=== PATIENT | female | born 1945 | race Two or more races ===

== ENCOUNTER 2019-12-05 06:46 | Day surgery (SDC) | payer OTHER | END 2019-12-05 10:30 | disposition home or self-care (01) | LOC: AMB-ENDOS 06:46 → CIR.AMB 12:00 | PROVIDERS: ATTEND Surgery | DX: D12.2 Benign neoplasm of ascending colon (principal); K64.8 Other hemorrhoids; Z20.828 Contact with and (suspected) exposure to other viral communicable diseases ==

== ENCOUNTER 2019-12-22 14:08 | Inpatient (IN) | payer OTHER ==
[~2019-12-22] VITALS: Ht 154.9 cm; Wt 137.0 kg
[2020-01-11] MEDS ORDERED: ATORVASTATIN CA40 MG PO (13:08)
[2020-01-11] MEDS ORDERED: LOSARTAN-HCTZ1 EAC1 PO (13:08)
[2020-01-11] MEDS ORDERED: TOPROL XL25 M1 PO (13:08)
[2020-01-11] MEDS ORDERED: SINGULAIR10 MG PO (13:09)
[2020-01-11] MEDS ORDERED: ALEND PO (13:09)
[2020-01-11] MEDS ORDERED: [UNRECOGNIZED DRUG - OTHER] PO (13:10)
[2020-01-11] MEDS ORDERED: ALBUTE IN (13:10)
[2020-01-11] MEDS ORDERED: FOLIC PO (13:12)
[2020-01-11] MEDS ORDERED: GLUCOSAM PO (13:12)
[2020-01-11] MEDS ORDERED: FISH OIL PO (13:13)
[2020-01-22] MEDS ORDERED: ALLERGY RELIEF180 MG (07:56)
[2020-01-22] MEDS ORDERED: BISACODYL5 MG (07:56)
[2020-01-22] MEDS ORDERED: FOLIC ACID0.8 M1 (07:57)
[2020-01-22] MEDS ORDERED: FISH OIL EC 1,1 EACH (07:57)
[2020-01-22] MEDS ORDERED: CELECOXIB200 MG (07:57)
[2020-01-22] MEDS ORDERED: ALBUTEROL SULFAT2 MG (08:10)
[2020-01-22] MEDS ORDERED: GLUCOSAMINE CHONDROI (08:11)
[2020-01-22] MEDS ORDERED: ALENDRONATE SOD70 MG (08:11)
[2020-01-25] MEDS ORDERED: DICY20TA PO (09:17)
== END 2020-01-25 14:17 | disposition home or self-care (01) | DRG 331 ==
LOC: SURH 01-18 07:00 → O/R 01-22 06:30 → SURH 01-22 11:30
PROVIDERS: ADMIT Surgery; ATTEND Surgery
PROC: 07TB4ZZ Resection of Mesenteric Lymphatic, Percutaneous Endoscopic Approach (ICD-10-PCS; 2020-01-22)
PROC: 3E0F7GC Introduction of Other Therapeutic Substance into Respiratory Tract, Via Natural or Artificial Opening (ICD-10-PCS; 2020-01-22)
PROC: 0DTF4ZZ Resection of Right Large Intestine, Percutaneous Endoscopic Approach (ICD-10-PCS; principal; 2020-01-22 19:45)
DX: D12.2 Benign neoplasm of ascending colon (principal); Z20.828 Contact with and (suspected) exposure to other viral communicable diseases; I11.9 Hypertensive heart disease without heart failure; E78.00 Pure hypercholesterolemia, unspecified; J84.10 Pulmonary fibrosis, unspecified; I12.9 Hypertensive chronic kidney disease with stage 1 through stage 4 chronic kidney disease, or unspecified chronic kidney disease; N18.2 Chronic kidney disease, stage 2 (mild)